=== PATIENT | female | born 1960 | race Caucasian/White ===

== ENCOUNTER 2021-11-28 11:57 | Outpatient (CLI) | payer OTHER, SELFPAY ==
--- NOTE | 2021-11-28 13:17 | ECG_ITS ---
Measurements Intervals [place] Rate: 71 P: 40 MT: 171 QRS: 14 QRSD: 104 T: 23 QT: 407 QTc: 442 Interpretive Statements SINUS RHYTHM NO PREVIOUS ECG AVAILABLE FOR COMPARISON Electronically Signed On 11-29-2021 13:35:27 CDT by Jaymie Tapia M.D.
[2021-11-28 13:42] LABS: Basophils Absolute Auto 0.1 K/mm3 (0.0-0.1); Basophils Percent Auto 0.5 % (0.2-1.2); Eosinophils Absolute Auto 0.2 K/mm3 (0-0.3); Eosinophils Percent Auto 1.7 % (0-4.4); Hematocrit 39.2 % (37.0-47.0); Hemoglobin 13.2 g/dL (12.0-15.0); Immature Granulocyte Absolute 0.03 K/mm3 (0.00-0.031); Immature Granulocyte Percent A 0.3 % (0-0.5); Lymphocytes Absolute Auto 4.03 K/mm3 (0.9-3.2); Lymphocytes Percent Auto 42.3 % (18.3-44.2); Mean Corpuscular HGB Conc 33.7 g/dl (32-36); Mean Corpuscular Hemoglobin 31.6 pg (26-34); Mean Corpuscular Volume 93.8 fl (80-100); Mean Platelet Volume 11.6 fl (7.4-10.4); Monocytes Absolute Auto 0.7 K/mm3 (0.1-0.6); Monocytes Percent Auto 7.7 % (2.6-8.5); Neutrophils Absolute Auto 4.5 K/mm3 (1.3-6.7); Neutrophils Percent Auto 47.5 % (45.5-73.1); Platelet Count Result 213 k/mm3 (150-375); Red Blood Count 4.18 M/mm3 (4.2-5.4); Red Cell Distribution Width 12.8 % (11.5-14.5); White Blood Count 9.5 K/mm3 (4.5-10.0)
[2021-11-28 13:44] LABS: Anion Gap 9 mmol/L (8-16); Blood Urea Nitrogen 24 mg/dL (7-17); Calcium 9.2 mg/dL (8.4-10.2); Carbon Dioxide 27 mmol/L (22-30); Chloride 105 mmol/L (98-107); Estimated Glomerular Filt Rate > 60; Glucose 157 mg/dL (65-110); Potassium 4.2 mmol/L (3.4-5.0); Sodium 141 mmol/L (137-145)
[2021-11-28 14:23] LABS: Atypical Lymphocytes Present; Platelet Estimate Adequate (Adequate)
== END 2021-11-28 11:58 | disposition home or self-care (01) ==
LOC: ANHSURGERY 12:03
PROVIDERS: Anesthesiology; Visit Provider Orthopaedic Surgery
DX: M12.811 Other specific arthropathies, not elsewhere classified, right shoulder (principal); M75.101 Unspecified rotator cuff tear or rupture of right shoulder, not specified as traumatic; I10 Essential (primary) hypertension; E11.9 Type 2 diabetes mellitus without complications; Z01.818 Encounter for other preprocedural examination
CPT/HCPCS: 36415; 80048; 85025; 87081; 93005

== ENCOUNTER 2021-11-28 13:40 | Outpatient (CLI) | payer OTHER, SELFPAY ==
--- NOTE | ~2021-11-28 | CT_ITS ---
CT OF RIGHT shoulder EXAMINATION: CT shoulder RT wo con DATE: 11/28/2021 14:03 INDICATION: Rotator cuff tear. TECHNIQUE: Computed tomography (CT) of the hip was performed without intravenous contrast. Automated exposure control and iterative reconstruction technique were employed. The dose-length product was 44 1.46 mGy-cm. COMPARISON: X-ray shoulder 11/20/2021 FINDINGS: Limitations: None Bones: No fracture or dislocation. Moderate degenerative change of the AC joint. Acromial tip entheso ming, with undersurface remodeling. Superior migration of the humeral head. Humeral head osteophytos is. Clinical humeral narrowing and subchondral cyst formation. Soft Tissues:Superior rotator cuff thinning. Calcific density in the fibers of the superior cuff. Fluid: No significant fluid within the joint capsule or surrounding bursal spaces. IMPRESSION: Moderate glenohumeral osteoarthritis. Moderate AC joint hypertrophy. Thinning of the superior third c uff with evidence of calcific tendinitis. Reviewed, dictated and finalized at location K. IMPRESSION: Moderate glenohumeral osteoarthritis. Moderate AC joint hypertrophy. Thinning o f the superior third cuff with evidence of calcific tendinitis.
== END 2021-11-28 13:41 | disposition home or self-care (01) ==
PROVIDERS: Visit Provider Orthopaedic Surgery
DX: M75.101 Unspecified rotator cuff tear or rupture of right shoulder, not specified as traumatic (principal); M19.011 Primary osteoarthritis, right shoulder
CPT/HCPCS: 73200

== ENCOUNTER 2021-12-23 01:06 | Day surgery (SDC) | payer OTHER, SELFPAY ==
--- NOTE | 2021-11-28 11:49 | PC.NURSE ---
Addendum entered by Luci Lopez RN 11/28/21 13:02: INSULIN PUMP- BASAL RATE PRE-OP Original Note: Report to the Outpatient Waiting Room, entrance under the green pavilion located off [address], at time __9:00AM on date _12/23/21 . OR Time: _11:00AM . - You and your visitor will be asked a series of questions to screen for COVID 19 for your protection. - Only one visitor is allowed at this time. - The patient visitor is requested to leave or wait in car when not with patient. - A mask is required within the hospital. Patients may have clear liquids (water, carbonated beverages, clear teas, apple juice) until 3 hours prior to surgery with a maximum of 20 ounces. - No food from midnight until time of surgery - Infants may have breast milk until 4 hours before surgery, formula 6 hours prior to surgery. - Children will be allowed to drink immediately following surgery. If applicable, please bring a bottle or sippy cup to assist with drinking. Juice, water, soda, and popsicles are readily available. For infants on formula, please bring formula the day of surgery. Pacifiers are allowed. Take the following medications with a SIP of water the morning of surgery: __CLONIDINE, DULOXETINE, HYDROCODONE NEEDED, METOPROLOL, VENLAFAXINE Medications to discontinue per physician ALL VITAMINS/SUPPLEMENTS 3 DAYS PRE-OP Date to take last dose 12/19/21 Please no make-up, nail romanian, hairspray, perfume, deodorant, or body powder the day of surgery. No jewelry (including any body piercings) or valuables the day of surgery, leave them at home. Please take a shower or bath the night before, or the morning of, surgery with an antibacterial soap. Wear comfortable, loose fitting clothing. Children are encouraged to wear pajamas. - Jewelry must be removed prior to entering the operating room. Rings and piercings that are not removed may be cut off. - The hospital will not accept responsibility for valuables. - Please leave all valuables, including medications, at home the day of surgery. If you are going home after surgery, a licensed lokie driver must drive you home. - NO public transportation without another adult. - We recommend that an adult stay with you for 24 hours following discharge. - We also recommend that you do not drive, make important decision, drink alcoholic beverages, or take any drugs that were not prescribed by your health care provider for at least 24 hours after your discharge time. For Pediatric surgeries, we recommend two adults accompany the child home (only one inside the building at this time). Follow any additional instructions given to you from your surgeon. If you or anyone in your household have experienced Covid symptoms in the past week, please notify your surgeon or the nurse liaison at the phone number below for possible testing. Telephone instructions given to ___PATIENT and asked if any additional questions and then verbalized understanding. Patient advised to call surgeon office or pre surgery nurse liaison [phone] if any additional questions.
[2021-11-28 12:23] VITALS: BP 106/69; PULSE 71; RESP 16; TEMP 36.8; O2SAT 94; BMI 38.2
[2021-12-23] VITALS (14 sets, daily range): BP systolic 105–132; BP diastolic 58–78; PULSE 76–105; RESP 10–18; TEMP 36.2–36.7; O2SAT 92–99
--- NOTE | ~2021-12-23 | XR_ITS ---
EXAMINATION: XR shoulder RT min 2V DATE: 12/23/2021 13:53 INDICATION: Right reverse total shoulder arthroplasty TECHNIQUE: Postoperative AP and transscapular Y views of the right shoulder were obtained. COMPARISON: None FINDINGS: Noncemented reverse right total shoulder arthroplasty which appears well seated in near-anatomic alig nment. No fractures identified. Moderate right acromioclavicular osteoarthritis. Visualized portion o f the right lung is clear. Soft tissues are unremarkable. IMPRESSION: Expected appearance post reverse right total shoulder arthroplasty. Reviewed, dictated and finalized at location B.
--- NOTE | 2021-12-23 08:36 | WPDANESEPPF ---
Anes - Initial Pre Proc Eval Procedure: Operation Date: 12/23/21 11:00 Proposed Procedures p Right Reverse Total Shoulder Arthroplasty - Sanket Diaz MD Date/Time: 12/23/21 08:36 Surgeon: Sanket Diaz MD Pre Op Diagnosis: Rt Rotator Cuff Arthropathy Patient Data Age: 61 Gender: F Height: 1.57 m Weight: 94.9 kg Last Vital Signs Temp 36.8 C 11/28/21 12:23 Pulse 71 11/28/21 12:23 Resp 16 11/28/21 12:23 BP 106/69 11/28/21 12:23 Pulse Ox 94 11/28/21 12:23 O2 Del Method Room Air 11/28/21 12:23 Allergies Allergy/AdvReac Type Severity Reaction Status Date / Time amitriptyline AdvReac Unknown SEDATED, Verified 12/23/21 09:26 HANG-OVER FEELING gabapentin AdvReac Unknown PT AVOIDS Verified 12/23/21 09:26 R/T MD RECOMMENDATION ibuprofen AdvReac Unknown YEAST Verified 12/23/21 09:26 INFECTION Home Medications Medication Instructions Recorded Confirmed Type atorvastatin 40 mg tablet 40 mg PO DAILY 03/20/21 12/18/21 History celecoxib 200 mg capsule (Celebrex) 200 mg PO QAM 03/20/21 12/18/21 History cholecalciferol (vitamin D3) 50 50 mcg PO DAILY 03/20/21 12/18/21 History mcg (2,000 unit) capsule clonidine HCl 0.1 mg tablet 0.1 mg PO BID 03/20/21 12/18/21 History flash glucose sensor (FreeStyle 03/20/21 12/18/21 History Dana 14 Day Sensor) lansoprazole 30 mg capsule,delayed 30 mg PO QAM 03/20/21 12/18/21 History release modafinil 200 mg tablet 200 mg PO QAM 03/20/21 12/18/21 History zolpidem 10 mg tablet 10 mg PO QHS PRN Insomnia 03/20/21 12/18/21 History trazodone 50 mg tablet 50 mg PO QHS PRN Insomnia 11/20/21 12/18/21 History albuterol (refill) 90 90 mcg inhalation Q4-6H PRN Dyspnea 11/28/21 12/18/21 History mcg/actuation aerosol inhaler dulaglutide 3 mg/0.5 mL 3 mg subcut WEEKLY 11/28/21 12/18/21 History subcutaneous pen injector (Trulicity) duloxetine 30 mg capsule,delayed 30 mg PO QAM 11/28/21 12/18/21 History release hydrocodone 10 mg-acetaminophen 1 tablet PO Q6-8H PRN Pain 11/28/21 12/18/21 History 325 mg tablet insulin aspart U-100 100 unit/mL See Rx Instructions .Route .COMPLEX 11/28/21 12/18/21 History subcutaneous solution (Novolog U-100 Insulin aspart) pregabalin 150 mg capsule 150 mg PO TID 11/28/21 12/18/21 History venlafaxine 75 mg capsule,extended 75 mg PO QAM 11/28/21 12/18/21 History release 24 hr lisinopril 20 mg tablet 20 mg PO DAILY 12/18/21 12/23/21 History Patient hx anesthesia problems: none Family hx anesthesia problems: none Results Review: All pre-operative results and documents have been reviewed as part of the pre-operative evaluation. [facility] Past Medical History Medical History (Updated 12/23/21 @ 08:37 by Vinicius Calhoun DO) Asthma Diabetes mellitus Endometriosis GERD (gastroesophageal reflux disease) Hyperlipidemia Hypertension Narcolepsy BURAK (obstructive sleep apnea) Surgical History Surgical History (Updated 12/23/21 @ 08:37 by Vinicius Calhoun DO) History of cholecystectomy History of partial hysterectomy History of tubal ligation Family History Family History Sibling Family history of malignant neoplasm Social History Social History Alcohol intake: current Alcohol use details: seldom Substance use: never Living arrangements: with family Additional living arrangements comments: [facility] Spiritual care concerns: No Anes - Eval Final PreProcedure Day of Procedure 12/23/21 08:36 Patient weight: obese Heart: regular rate and rhythm Lungs: clear to auscultation Airway: Mallampati scale class II Neurological: alert and oriented Last oral intake: >/= 8 hours ASA classification: III Emergent: no Anesthetic plan: proceed Anesthesia type and monitoring: general ETT and standard monitoring Results Review:
--- NOTE | 2021-12-23 08:39 | WPDANESPNB ---
Anes - Peripheral Nerve Block Date/Time: 12/23/21 08:39 I have discussed with the patient/family/POA the placement of a peripheral nerve block for post-operative pain management, including associated risks, benefits, complications, and side effects. Alternative methods of post-operative analgesia were detailed. Questions were solicited and answers provided to the satisfaction of the patient/family/POA. Time-Out: A pre-procedural Time-Out was completed immediately before starting the procedure and confirmed: Patient Identification, Site, Procedure, Patient Position and the Availability of Requisite Equipment. Clinical Indications: Acute post-operative pain management requested by the operative surgeon. Nerve Block Insertion Note Anes-nerve block: interscalene right Patient position: supine Skin prep: chlorhexidine Needle: 22 gauge, stimulating, insulated echogenic needle. Needle length: 50 mm Technique: ultrasound Injectate: bupivacaine 0.5% with epi 5 mcg/ml (30cc- no epi) Observations: tolerated well Complications: none Procedure start time:: 1012 Procedure end time:: 101
[2021-12-23] MEDS: LACTATED RINGERS 1,000 ML 30 ML IV CONT ×2 (09:29→13:40)
[2021-12-23] MEDS: ACETAMINOPHEN 500 MG TABLET 1000 MG PO (09:46)
[2021-12-23] MEDS: TRANEXAMIC ACID 1,000MG/ISO100 1,000 MG/100 ML BAG 200 MG IVPB (09:47)
[2021-12-23 09:54] LABS: Glucose Point of Care 154 mg/dl (65-105)
--- NOTE | 2021-12-23 10:03 | WPDHPUPDATE1 ---
History and Physical Update Update Date/Time: 12/23/21 10:03 History and Physical has been reviewed, including an updated exam of the patient. There are NO changes in the patient's condition. Risks, benefits, and alternatives have been discussed and questions answered. Patient agrees to proceed with procedure.
--- NOTE | 2021-12-23 10:12 | SUR.PREOP ---
Dr. Calhoun aware patient has implanted glucose monitor and insulin pump. Patient to keep both in place for surgery. Will continue to monitor blood sugars.
[2021-12-23] MEDS: ceFAZolin 2 GM/D5W 50 ML 2 GM/50 ML BAG IVPB (10:30)
[2021-12-23] MEDS: VANCOMYCIN HCL 1,000 MG VIAL 1000 MG TOPICAL (11:27)
[2021-12-23] MEDS: HYDROGEN PEROXIDE 3% SOLN(*SP) 473 ML BOTTLE 500 ML IRRIGATION (11:28)
--- NOTE | 2021-12-23 13:22 | W.PM.PROC2 ---
Procedure Note - Detailed Date of Procedure 12/23/21 Pre-op Diagnosis Rt Rotator Cuff Arthropathy Post-op Diagnosis Same Procedure Performed Reverse total shoulder arthroplasty, right shoulder. Surgeon Sanket Diaz MD Anesthesia General and Regional (Interscalene block.) Findings Supraspinatus tear with significant attenuation of the tissue. Bone quality was good. Mild to moderate degenerative changes. The pectoralis was left intact without release. Glenoid size was small, as expected from the 3D planning software. Slight inferior inclination correction was performed according to preoperative templating. Excellent stability with the total of 6 mm glenoid lateralization. The subscapularis reduced nicely, and was repaired. Description of Procedure The patient was given an interscalene block in the preoperative area. Preoperative antibiotics were given. The patient was transferred to the operating room and a general anesthetic was administered. The beach chair position was used at 45 degrees. All bony prominences were padded. The head was carefully stabilized [facility]. A sterile prep and drape was performed in the usual manner with ChloraPrep. A longitudinal incision was created at the anterior shoulder just lateral to the deltopectoral interval. Hydrogen peroxide was placed on the incision and then rinsed after one minute. The deltopectoral interval was poorly defined. Careful dissection was performed proximally to expose the interval, medial to the coracoid. The pectoralis was exposed medially, and protected. The cephalic vein was absent. Distally, the upper border of the pectoralis was identified and left in situ. The anterior circumflex vessel branches were suture ligated. The biceps was released. A subscapularis tenotomy was performed. The inferior capsule was released, exposing the humeral head. Osteophytes were removed. Care was taken to stay on bone to protect the axillary nerve. The anatomic head cut was taken with the oscillating saw. The guide pin was placed, central drilling performed, and the broach trial inserted. The neck anteversion and inclination were carefully assessed. The cut protector was placed, and attention was turned to the glenoid. Retractors were placed. Releases were carried out for exposure. The subscapularis was mobilized, the inferior capsule and long head of triceps released, and the superior and middle glenohumeral ligaments released as well. Labral tissue was resected as needed. The sizing template was used to assess the baseplate position low on the glenoid. A guide pin was placed. Minimal reaming was used to accomplish a flat surface without violating the subchondral bone. Version was corrected according to preoperative templating. The boss was drilled, and the real component was impacted into position. Supplemental locking screws were placed centrally, superiorly, and inferiorly. The glenosphere was impacted into the taper. The proximal humerus was reamed for the inset component. The humeral components were trialed. The real humeral stem, tray, and insert were impacted into position. The shoulder was copiously irrigated periodically with pulsatile lavage. The shoulder was reduced and stability confirmed. 1 gram of Vancomycin powder was placed in the joint. The biceps tenodesis was incorporated with the pectoralis tendon repair. The deltopectoral space was reapproximated with number 1 Vicryl. The remaining tissue was closed with 0 Quill and 2-0 Quill running suture and steri-strips. A sterile silver occlusive dressing and shoulder immobilizer were placed. The patient was transferred to the recovery room. Implants Shoulder Innovations reverse TSA size 0 stem. +0 polyethylene insert. Standard baseplate (3mm augmented). 33+3 mm glenosphere. Estimated Blood Loss 200 Drains No Pathology None sent Complications No immediate complications Condition Stable Disposition PACU [facility] Billing Surgery - Charge
[2021-12-23 13:58] LABS: Glucose Point of Care 168 mg/dl (65-105)
[2021-12-23] MEDS: fentaNYL CITRATE INJ (*CRX) 100 MCG/2 ML VIAL 25 MCG IV PUSH ×4 (14:12→14:40)
[2021-12-23] MEDS: HYDROmorphone HCL INJ (*CRX) 1 MG/ML SYR 0.25 MG IV PUSH ×4 (14:45→15:19)
--- NOTE | 2021-12-23 16:10 | ADMGEN ---
This patient, Odessa Ramires, was admitted to Medical Room 252-01. Patient/family oriented to hospital policies and general routines including ID bracelet, bed and alarms, visiting hours, pain management, procedures, bathroom and other care routines, personal items, smoking policy, room service/diet, and visiting hours. Information on how to activate the Rapid Response Team has been discussed. Patient/Family are encouraged to report perceived risks to care and to ask questions if they do not understand what they are told or what they should do.
[2021-12-23] MEDS: oxyCODONE HCL (*CRX) 5 MG TAB IR PO ×2 (17:01→21:17)
[2021-12-23] MEDS: PREGABALIN (*CRX) 75 MG CAPSULE 150 MG PO (17:03)
[2021-12-23] MEDS: SENNA/DOCUSATE SODIUM TABLET 2 TAB PO (17:04)
[2021-12-23] MEDS: cloNIDine HCL 0.1 MG TABLET PO (17:15)
[2021-12-23 17:41] LABS: Glucose Point of Care 205 mg/dl (65-105)
--- NOTE | 2021-12-23 18:00 | WPDCN ---
Assessment and Plan Assessment and plan (1) Rotator cuff tear arthropathy of right shoulder: Code(s): M75.101 - Unspecified rotator cuff tear or rupture of right shoulder, not specified as traumatic; M12.811 - Other specific arthropathies, not elsewhere classified, right shoulder Status: Acute Assessment and Plan: Postoperative day 0 status post reverse total shoulder arthroplasty. Wound care, pain control, DVT prophylaxis deferred to Dr. Diaz. (2) Insulin dependent type 2 diabetes mellitus: Code(s): E11.9 - Type 2 diabetes mellitus without complications; Z79.4 - ferry terminal agent (current) use of insulin Status: Acute Assessment and Plan: Patient removed her insulin pump due to difficulties as her right arm is currently out of commission. States will help her with the pump when she is back home tomorrow. Initiate sliding scale insulin, Accu-Cheks, and hypoglycemic protocol. (3) Obstructive sleep apnea on CPAP: Code(s): G47.33 - Obstructive sleep apnea (adult) (pediatric); Z99.89 - Dependence on other enabling machines and devices Status: Acute Assessment and Plan: CPAP provided for the patient to use while hospitalized. (4) Hypertension: Code(s): I10 - Essential (primary) hypertension Status: Acute Assessment and Plan: Blood pressures were reviewed and they are stable postoperatively. Antihypertensives will be reviewed and resumed as appropriate. (5) Gastroesophageal reflux disease: Code(s): K21.9 - Gastro-esophageal reflux disease without esophagitis Status: Acute Assessment and Plan: Continue lansoprazole. Additional Plan Thank you for allowing us to participate in this patient's care. Please do not hesitate to contact us with any questions. Supervising physician for this medical consultation is Dr. Aquiles Weiss. HPI Data of Consult Date/Time: 12/23/21 18:00 Requesting Physician: Sanket Diaz MD Reason for consultation: Postoperative medical management. Primary Care Provider: PHYSICIAN NOT ON STAFF Consult Narrative Narrative: This is a 61-year-old female with insulin-dependent type 2 diabetes mellitus, hypertension, sleep apnea on CPAP, and GERD whom the hospitalist service has been consulted for help managing her medical conditions postoperatively. She was admitted for an elective reverse total shoulder arthroplasty due to ongoing right shoulder pain despite conservative treatment. Surgery was performed under general anesthesia with interscalene block. No immediate complications were documented an estimated blood loss was 200 mL. She is having pretty significant ?hot, burning like pain? in the right axilla and she has just received another pain pill. Other than that she is doing okay and she has been ambulating to the bathroom with 1 person assist. She is having difficulties working her insulin pump because of the surgery and that has since been removed and we are managing that with sliding scale insulin. She has no current complaints and denies fever, chills, sweats, chest pain, shortness a breath, nausea, and vomiting. He still has some tingling in the right arm and fingers but sensation is returning. He has not noticed skin color or temperature changes in that arm. Review of Systems Review of Systems: Twelve systems were reviewed. No recent cold or flu symptoms. No sick contacts. No exertional chest pain or shortness of breath. She has occasional constipation. No dysuria. She believes her diabetes is pretty well controlled. No recent lows or highs. No blurry vision, polydipsia, or polyuria. No personal or family history of venous thromboembolism. [facility], [facility] Past Medical History Medical History (Updated 12/23/21 @ 21:03 by Molly Herrera PA-C) Asthma Depression with anxiety Endometriosis Gastroesophageal reflux disease Hyperlipidemia
[2021-12-23] MEDS: oxyCODONE HCL (*CRX) 5 MG TAB IR 10 MG PO (20:04)
[2021-12-23 20:07] LABS: Hemoglobin A1C 7.5 % (<5.7)
[2021-12-23 20:37] LABS: Glucose Point of Care 274 mg/dl (65-105)
[2021-12-23] MEDS: ZOLPIDEM TARTRATE (*CRX) 5 MG TABLET 10 MG PO (21:18)
[2021-12-24 01:39] VITALS: BP 109/64; PULSE 86; RESP 14; TEMP 36.5; O2SAT 94
[2021-12-24] MEDS: INSULIN ASPART (*BKC) 100 UNITS/ML SUB-Q ×3 (01:46→11:44)
[2021-12-24 05:53] LABS: Hematocrit 36.4 % (37.0-47.0); Hemoglobin 11.9 g/dL (12.0-15.0); Mean Corpuscular HGB Conc 32.7 g/dl (32-36); Mean Corpuscular Hemoglobin 31.1 pg (26-34); Mean Platelet Volume 11.3 fl (7.4-10.4); Platelet Count Result 215 k/mm3 (150-375); Red Blood Count 3.83 M/mm3 (4.2-5.4); Red Cell Distribution Width 12.6 % (11.5-14.5); White Blood Count 16.4 K/mm3 (4.5-10.0)
[2021-12-24 06:00] VITALS: BP 118/73; PULSE 91; RESP 18; TEMP 36.5; O2SAT 94
[2021-12-24 06:07] LABS: Anion Gap 6 mmol/L (8-16); Blood Urea Nitrogen 14 mg/dL (7-17); Calcium 8.7 mg/dL (8.4-10.2); Carbon Dioxide 29 mmol/L (22-30); Chloride 103 mmol/L (98-107); Estimated CRCL calculation 78 ml/min; Estimated Glomerular Filt Rate > 60; Glucose 215 mg/dL (65-110); Magnesium 1.8 mg/dL (1.6-2.3); Potassium 4.2 mmol/L (3.4-5.0); Sodium 138 mmol/L (137-145)
--- NOTE | 2021-12-24 07:33 | WPDANESPN ---
Anes - Prog Note Post-Op Date/Time: 12/24/21 07:33 Cardiovascular status: normal Respiratory status: normal Airway patency: baseline Mental status: baseline Post-Op hydration status: normal Vital Signs: Last Vital Signs Temp 97.7 F 12/24/21 06:00 Pulse 91 12/24/21 06:00 Resp 18 12/24/21 06:00 BP 118/73 12/24/21 06:00 Pulse Ox 94 12/24/21 06:00 O2 Del Method Nasal Cannula 12/23/21 20:00 O2 Flow Rate 1 12/23/21 20:00 Pain Score (VAS): 08/11 I/O: Intake & Output 12/23/21 12/23/21 12/24/21 15:59 23:59 07:59 Intake Total 1150 510 550 Balance 1150 510 550 Laboratory Tests 12/24/21 05:17 12/24/21 05:17 12/23/21 12/23/21 12/23/21 09:34 09:45 13:56 WBC RBC Hgb Hct MCV MCH MCHC RDW Plt Count MPV Sodium Potassium Chloride Carbon Dioxide Anion Gap BUN Creatinine Estim Creat Clear Calc Estimated GFR Glucose POC Capillary Glucose 154 H 168 H Hemoglobin A1c Calcium Magnesium Blood Type O Positive Antibody Screen Negative 12/23/21 12/23/21 12/23/21 16:55 19:43 20:15 WBC RBC Hgb Hct MCV MCH MCHC RDW Plt Count MPV Sodium Potassium Chloride Carbon Dioxide Anion Gap BUN Creatinine Estim Creat Clear Calc Estimated GFR Glucose POC Capillary Glucose 205 H 274 H Hemoglobin A1c 7.5 H Calcium Magnesium Blood Type Antibody Screen 12/24/21 12/24/21 05:17 05:17 WBC 16.4 H RBC 3.83 L Hgb 11.9 L Hct 36.4 L MCV 95.0 MCH 31.1 MCHC 32.7 RDW 12.6 Plt Count 215 MPV 11.3 H Sodium 138 Potassium 4.2 Chloride 103 Carbon Dioxide 29 Anion Gap 6 L BUN 14 D Creatinine 0.70 Estim Creat Clear Calc 78 Estimated GFR > 60 Glucose 215 H POC Capillary Glucose Hemoglobin A1c Calcium 8.7 Magnesium 1.8 Blood Type Antibody Screen Patient Feedback: Patient satisfied with anesthetic care.
[2021-12-24 07:38] LABS: Glucose Point of Care 229 mg/dl (65-105)
[2021-12-24] MEDS: lisinopriL 20 MG TABLET PO (08:00)
[2021-12-24] MEDS: SENNA/DOCUSATE SODIUM TABLET 2 TAB PO (08:00)
[2021-12-24] MEDS: CELECOXIB 200 MG CAPSULE PO (08:00)
[2021-12-24] MEDS: CHOLECALCIFEROL 1,000 UNITS TABLET 2000 UNITS PO (08:00)
[2021-12-24] MEDS: ATORVASTATIN 40 MG TABLET PO (08:00)
[2021-12-24] MEDS: DULoxetine HCL 30 MG CAPSULE.DR PO (08:00)
[2021-12-24] MEDS: PREGABALIN (*CRX) 75 MG CAPSULE 150 MG PO ×2 (08:00→12:08)
[2021-12-24] MEDS: polyethylene glycoL 3350 17 GM POWD.PACK PO (08:01)
[2021-12-24] MEDS: VENLAFAXINE HCL XR 75 MG CAP.ER.24H PO (08:01)
[2021-12-24] MEDS: PANTOPRAZOLE 40 MG TABLET PO (08:01)
[2021-12-24] MEDS: cloNIDine HCL 0.1 MG TABLET PO (08:01)
[2021-12-24] MEDS: oxyCODONE HCL (*CRX) 5 MG TAB IR PO ×2 (08:10→12:17)
[2021-12-24 09:30] VITALS: BP 117/65; PULSE 83; RESP 14; TEMP 36.3; O2SAT 94
[2021-12-24 11:33] LABS: Glucose Point of Care 276 mg/dl (65-105)
--- NOTE | 2021-12-24 11:56 | PM.IMPN ---
Progress Note: A&P Assessment and Plan (1) Rotator cuff tear arthropathy of right shoulder: Code(s): M75.101 - Unspecified rotator cuff tear or rupture of right shoulder, not specified as traumatic; M12.811 - Other specific arthropathies, not elsewhere classified, right shoulder Status: Acute Assessment and Plan: POD1 s/p reverse total shoulder arthroplasty. Wound care, pain control, therapy, and DVT prophylaxis deferred to Dr. Diaz. (2) Insulin dependent type 2 diabetes mellitus: Code(s): E11.9 - Type 2 diabetes mellitus without complications; Z79.4 - watermaster (current) use of insulin Status: Acute Assessment and Plan: Patient removed her insulin pump due to difficulties as her right arm is currently out of commission. She plans to reattach her pump at discharge and have her assist with managing basal/bolus settings. Home glucose levels ~110-120 mg/dL. A1c 7.5%. -glucose elevated postop >200 mg/dL. Give total 14 units novolog with lunch. Continue accu-checks and sliding scale while inpatient. If patient is to stay another night, will plan to add lantus at HS for better glucose management. Patient to resume home insulin pump parameters at discharge, which we discussed and she verbalized understanding. -Goal glucose <180 mg/dL for adequate wound healing. (3) Obstructive sleep apnea on CPAP: Code(s): G47.33 - Obstructive sleep apnea (adult) (pediatric); Z99.89 - Dependence on other enabling machines and devices Status: Acute Assessment and Plan: Continue CPAP at home settings. (4) Hypertension: Code(s): I10 - Essential (primary) hypertension Status: Acute Assessment and Plan: BP stable. Continue current medications at home dose. (5) Gastroesophageal reflux disease: Code(s): K21.9 - Gastro-esophageal reflux disease without esophagitis Status: Acute Assessment and Plan: Continue lansoprazole. Additional Plan Thank you for allowing us to participate in this patient's care. Please do not hesitate to contact us with any questions. Supervising physician for this medical consultation is Dr. Marco Galvan. Time Spent With Patient Time: 15 min Subjective Date/time seen: 12/24/21 11:56 Patient is a 61 yo female with medical history of IDDM, BURAK, GERD, HLD, and asthma. She underwent elective right total shoulder arthroplasty on 12/23/21. Patient found lying in bed. She reports moderate, aching pain and numbness to right arm, but it is improving. The pain improves with medications and position changes. She denies SOB, chest pain, N/V/D, abd pain or constipation. Review of Systems Review of Systems: All systems reviewed & are unremarkable except as noted in HPI and below Exam Narrative: General: Well-developed, obese female lying in bed. NAD. HEENT: Normocephalic. Atraumatic. PERRL, EOMI. Sclerae anicteric. Oral mucosa moist. Neck: Supple. No JVD. Respiratory: Lungs are clear to auscultation bilaterally. Cardiovascular: Regular rate and rhythm with normal S1-S2. Gastrointestinal: Abdomen is soft, nontender, and nondistended with positive bowel sounds in all 4 quadrants. Skin: Warm and dry. No rash or lesions on limited exam. R shoulder surgical site with aquacel dressing c/d/i. Surrounding skin without erythema or ecchymosis. Extremities: No cyanosis, clubbing, or edema. Radial and pedal pulses intact. Musculoskeletal: Some decrease in sensation due to interscalene block. RUE immobilizing sling in place. Good capillary refill. All other extremities with grossly normal ROM. Neurological: Alert. Cranial nerves 2-12 are grossly intact. No gross focal deficits to casual conversation. Psychiatric: Pleasant and cooperative with normal mood and affect. Objective Data Vital Signs Vital Signs: Vital Signs - 24 hr 12/23/21 13:45 12/23/21 14:00 12/23/21 14:15 Temperature 98 F Pulse
[2021-12-24] MEDS: INSULIN ASPART (*BKC) 100 UNITS/ML 10 UNITS SUB-Q (12:07)
[2021-12-24 13:05] VITALS: BP 108/63; PULSE 73; RESP 16; TEMP 36.3; O2SAT 94
--- NOTE | 2021-12-24 15:31 | PC.NURSE ---
Patient insisting on using home supplies for left leg dressing. Attempted to secure dressing with an derrick wrap, patient stated it was too itchy and had appeared to pull the wrap down although she states it fell down . Spoke with wound care, OK for patient to bring in home supplies and utilize for dressing changes.
--- NOTE | 2021-12-24 16:56 | PM.DS ---
DS: Admitting Diagnosis Discharge Date 12/24/21 Admitting Diagnosis Massive rotator cuff tear. DS: Discharge Diagnosis Discharge Diagnosis (1) Status post reverse total arthroplasty of right shoulder: Code(s): Z96.611 - Presence of right artificial shoulder joint Status: Acute Assessment and Plan: Postop day 1: Right Reverse total shoulder arthroplasty. Patient tolerated procedure well. No complications. Pain manageable with pain medication. No numbness or tingling. We had a lengthy discussion regarding postoperative wound care, limitations, expectations, and exercises. Patient shows good understanding. He has had initial physical therapy and is tolerating it well. DVT prophylaxis: 81 mg baby aspirin b.i.d. for 14 days. Pain medication: Percocet. Will cover with an additional 3 weeks of Bactrim due to patient's recent difficulty with control of her blood sugar. Patient has followup appointment with Dr. Diaz in 3 weeks. DS: Summary Hospital Course Hospital Course: Tolerated procedure well. Has had initial PT/OT. Status at Discharge Functional status at discharge: independent ambulation Overall status at discharge: patient is progressing back to baseline Time Spent with Patient Time attestation: Total time spent providing and/or coordinating discharge services: Exam Narrative: Overweight 61 y/o Female. Resting comfortably in chair. Wearing sling. Dressing dry and intact with no drainage. Moderate swelling. Moderate ecchymosis. No erythema. Range of motion limited due to pain. Calf nontender. Neurologic status intact. No varicosities. Distal pulses palpable. DS: Data Data Completed and Pending Labs on day of discharge: Labs from last 24 hours 12/24/21 12/24/21 12/24/21 11:25 07:30 05:17 WBC RBC Hgb Hct MCV MCH MCHC RDW Plt Count MPV Sodium 138 Potassium 4.2 Chloride 103 Carbon Dioxide 29 Anion Gap 6 L BUN 14 D Creatinine 0.70 Estim Creat Clear Calc 78 Estimated GFR > 60 Glucose 215 H POC Capillary Glucose 276 H 229 H Hemoglobin A1c Calcium 8.7 Magnesium 1.8 12/24/21 12/23/21 12/23/21 05:17 20:15 19:43 WBC 16.4 H RBC 3.83 L Hgb 11.9 L Hct 36.4 L MCV 95.0 MCH 31.1 MCHC 32.7 RDW 12.6 Plt Count 215 MPV 11.3 H Sodium Potassium Chloride Carbon Dioxide Anion Gap BUN Creatinine Estim Creat Clear Calc Estimated GFR Glucose POC Capillary Glucose 274 H Hemoglobin A1c 7.5 H Calcium Magnesium 12/23/21 16:55 WBC RBC Hgb Hct MCV MCH MCHC RDW Plt Count MPV Sodium Potassium Chloride Carbon Dioxide Anion Gap BUN Creatinine Estim Creat Clear Calc Estimated GFR Glucose POC Capillary Glucose 205 H Hemoglobin A1c Calcium Magnesium Discharge Plan Discharge Patient Disposition: Home, Self-Care Discharge Instructions: See green instruction sheets. Continue home pain medications. Bactrim DS for 3 weeks due to increased blood sugar cee operatively. Patient Instructions: Shoulder Immobilizer (DC) Stand Alone Forms: General Discharge Instructions Follow-up/Referrals: Cherise Cortes PA [Physician Hat Body Inspector] - Discharge Medications: New aspirin 81 mg tablet,delayed release (DR/EC) 81 mg PO BID 14 Days Qty: 28 0RF sulfamethoxazole-trimethoprim [Bactrim DS] 800-160 mg tablet 1 tablet PO Q12H Qty: 42 0RF Rx Instructions: Twice a day for 3 weeks. oxycodone-acetaminophen 5-325 mg tablet 1 - 2 tablet PO Q4-6H MDD 6 PRN (Reason: pain) Qty: 30 0RF Continued trazodone 50 mg tablet 50 mg PO QHS PRN (Reason: Insomnia) atorvastatin 40 mg tablet 40 mg PO DAILY celecoxib [Celebrex] 200 mg capsule 200 mg PO QAM clonidine HCl 0.1 mg tablet 0.1 mg PO BID (DME) FreeStyle Dana 14 Day S
== END 2021-12-24 15:09 | disposition home or self-care (01) ==
LOC: ANHSURGERY 08:44 → ANH2MED 16:04
PROVIDERS: Physician Assistant; Visit Provider Orthopaedic Surgery
PROC: (CPT 23472; principal; 2021-12-23 11:00)
DX: M75.101 Unspecified rotator cuff tear or rupture of right shoulder, not specified as traumatic (principal); M19.011 Primary osteoarthritis, right shoulder; G89.18 Other acute postprocedural pain; J45.909 Unspecified asthma, uncomplicated; E11.9 Type 2 diabetes mellitus without complications; K21.9 Gastro-esophageal reflux disease without esophagitis; E78.5 Hyperlipidemia, unspecified; I10 Essential (primary) hypertension; G47.33 Obstructive sleep apnea (adult) (pediatric); G47.419 Narcolepsy without cataplexy; E66.9 Obesity, unspecified; Z68.37 Body mass index [BMI] 37.0-37.9, adult; Z79.51 Long term (current) use of inhaled steroids; Z79.899 Other long term (current) drug therapy; Z79.4 Long term (current) use of insulin
CPT/HCPCS: 23472; 64415; 36415; 73030; 80048; 82948; 83036; 83735; 85027; 86850; 86900; 86901; 97110; 97161; 97165; 97535; A4565; A9270; J0131; J0171; J0690; J1100; J1170; J1815; J2250; J2270; J2405; J2704; J2795; J3010; J3370; J7120